=== PATIENT | female | born 1980 | race Caucasian/White ===

== ENCOUNTER → 2021-11-21 | Outpatient (CLI) | payer BC | LOC: MAMMO 09:17 | PROVIDERS: ATTEND Internal Medicine | DX: Z12.31 Encounter for screening mammogram for malignant neoplasm of breast (principal) | CPT/HCPCS: 77067 ==

== ENCOUNTER → 2023-02-19 | Outpatient (REF) | payer BC | LOC: MAMMO 10:43 | PROVIDERS: ATTEND Internal Medicine | DX: Z12.31 Encounter for screening mammogram for malignant neoplasm of breast (principal) | CPT/HCPCS: 77067 ==